=== PATIENT | male | born 1940 | race Caucasian/White ===

== ENCOUNTER 2016-06-06 23:26 | Observation (INO) ==
--- NOTE | 2016-06-06 23:38 | Emergency Department Note ---
Disposition Clinical Impression: Congestive heart failure, Community acquired pneumonia Disposition: Admitted As Inpatient Condition: Fair Forms: ED Satisfaction Letter Time of Disposition: 01:36 SOB HPI - General Chief Complaint: ED Shortness of Breath/Dyspnea Stated Complaint: HI Time Seen by Provider: 06/06/16 23:34 Source: patient Mode of arrival: ambulatory Limitations: no limitations Nursing Notes Reviewed: Yes Vital Signs Reviewed: Yes - History of Present Illness Pt Subjective Complaint: shortness of breath Context: recent illness, occurred during exertion Severity: moderate Consistency/Duration: gradually worsening Improves with: oxygen Worsens with: exertion, movement, inspiration Known history of: COPD, congestive heart failure, recurrent pneumonia Associated symptoms: Reports: fever, cough, wheezing, sputum production. Denies : chest pain, pain with inspiration, orthopnea, lower extremity pain, polyuria, polydipsia, parasthesias, palpitations, hemoptysis, diaphoresis, nausea/vomiting , syncope, abdominal pain, sense of impending doom Treatment prior to arrival: oxygen Cough present: Yes Cough Description: Involuntary, Productive, Strong, Bronchospastic Cough Frequency: Continuous Sputum production: Yes Sputum Amount: Small Sputum Color: Yellow, [place] Tinged - Related Data Home Medications Medication Instructions Recorded Confirmed Albuterol Sulfate [Proair 90 mcg IH Q2H PRN 03/08/15 03/08/15 Respiclick] Aspirin Enteric Coated [Aspirin EC] 81 mg PO DAILY 03/08/15 03/08/15 Atorvastatin [Lipitor] 10 mg PO DAILY 03/08/15 03/08/15 ClonazePAM [Klonopin] 0.5 mg PO HS 03/08/15 03/08/15 Esomeprazole Magnesium [Nexium] 40 mg PO DAILY 03/08/15 03/08/15 Nitroglycerin [Nitrostat] 0.4 mg SL Q5-6MIN PRN 03/08/15 03/08/15 PredniSONE 2 mg PO DAILY 03/08/15 03/08/15 Spironolactone [Aldactone] 25 mg PO BID 03/08/15 03/08/15 Tamsulosin [Flomax] 0.4 mg PO DAILY 03/08/15 03/08/15 Previous Rx's Medication Instructions Recorded OxyCODONE/APAP 5/325 [Percocet 1 - 2 each PO Q4HR PRN #40 tablet 03/08/15 5/325 MG] Allergies Allergy/AdvReac Type Severity Reaction Status Date / Time Iodinated Contrast Media - Allergy Swelling Verified 03/08/15 08:21 Oral and of [Iodinated Contrast Media - Lip/Tongue/Throat IV Dye] All systems ED: reviewed and negative except as stated. Constitutional: Denies: fever, chills, weakness Eyes: Denies: eye pain, eye discharge ENT ED: Denies: ear pain, throat pain Cardiovascular: Reports: dyspnea on exertion. Denies: chest pain, palpitations Respiratory: Reports: cough, dyspnea, wheezes, sputum production Gastrointestinal: Denies: abdominal pain, nausea, vomiting Genitourinary: Denies: urgency, dysuria, frequency Musculoskeletal: Denies: back pain, neck pain Integumentary: Denies: abrasion, lesions Neurological: Denies: headache, weakness Psychiatric: Denies: anxiety, depression Endocrine: Denies: fatigue Hematological/Lymphatic: Denies: easy bleeding Allergic/Immunologic: Denies: facial swelling Past Medical History - Past Medical History Attestation: Yes The following information was validated with the patient. Source: patient, old records reviewed, nursing notes reviewed Medical history: Reports: COPD, coronary artery disease, hyperlipidemia, hypertension, other Surgical history: Reports: coronary bypass (CABG) Psychiatric history: Reports: anxiety, depression - Social History Smoking Status: Former smoker Smokeless Tobacco Status: Yes Alcohol use: Reports: none Drug use: Reports: none Physical Exam - General Limitations: no limitations General appearance: alert, in no apparent distress, other ([place]WELL) - Head Head exam: atraumatic, normocephalic, normal inspection - Eye Eye exam: Present: normal appearance, PERRL, EOMI - ENT ENT exam: normal exam, normal oropharynx, mucous membranes moist, normal external ear exam - Neck Neck exam: Present: normal inspection, full ROM, trachea midline - Chest Chest inspection: Present: normal inspection, symmetric chest wall rise - Respiratory Respiratory exam: Present: normal lung sounds bilaterally - Cardiovascular Cardiovascular exam: Present: regular rate, normal rhythm, normal heart sounds - Abdominal Exam Abdominal exam: Present: soft, Non-Tender, normal bowel sounds. Absent: mass, pulsatile mass - Extremities Exam Extremities exam: Present: normal inspection, full ROM, normal capillary refill , pedal edema. Absent: tenderness, joint swelling - Expanded Lower Extremity Exam Neurovascular/Tendon exam: Present: normal capillary refill Gait: observed and normal - Back Exam Back exam: Present: normal inspection, full ROM. Absent: muscle spasm - Neurological Exam Neurological exam: Present: alert, oriented X3, CN II-XII intact, normal gait - Psychiatric Psychiatric exam: Present: normal affect, normal mood - Skin Skin exam: Present: warm, dry, intact, normal color Course Course Narrative: Payment given a gram of Tylenol because he had an elevated 103 patient was given Bumex due to vascular congestion on the chest xray with results and obtain discharged to [facility] stable Vital Signs Temperature 103.8 F H 06/06/16 23:38 Pulse Rate 111 06/06/16 23:38 Respiratory Rate 20 06/06/16 23:38 Blood Pressure 129/62 06/06/16 23:38 O2 Sat by Pulse Oximetry 93 L 06/06/16 23:38 Temperature 100.6 F H 06/07/16 01:04 Pulse Rate 105 06/07/16 01:04 Respiratory Rate 19 06/07/16 01:04 Blood Pressure 100/55 06/07/16 01:04 O2 Sat by Pulse Oximetry 94 L 06/07/16 01:04 Oxygen Delivery Oxygen Delivery Nasal Cannula Shortness of Breath/Dyspnea - Differential Diagnosis Likely: acute exacerbation of chronic obstructive airways disease, congestive heart failure, pneumonia - Medical Records Medical records reviewed: Yes I reviewed the patient's medical records. - Lab Data Lab results reviewed: Yes I reviewed the patient's lab results. Result diagrams: 06/07/16 00:13 06/07/16 00:13 Lab Results 06/07/16 06/07/16 06/07/16 Range/Units 00:13 00:13 00:13 WBC 14.6 H (4.3-11.1) K/mcL RBC 4.65 (4.19-5.50) M/mcL Hgb 13.7 (12.9-16.9) g/dL Hct 40.9 (37.5-50.1) % MCV 88.0 (83.0-100.0) fL MCH 29.5 (28.0-33.3) pg MCHC 33.5 (31.6-35.5) g/dL RDW 12.6 (11.5-14.5) % Plt Count 196 (140-400) K/mcL MPV 9.3 L (9.4-12.4) fL Immature Gran % 0.3 (0-4) % Seg Neutrophils % 90.9 % Lymphocytes % 3.7 % Monocytes % 4.7 % Eosinophils % 0.3 % Basophils % 0.1 % Neutrophils # 13.3 H (1.6-8.9) K/mcL Lymphocytes # 0.5 L (0.6-4.6) K/mcL Monocytes # 0.7 (0.0-1.3) K/mcL Eosinophils # 0.0 (0.0-0.6) K/mcL Basophils # 0.0 (0.0-0.2) K/mcL PT 11.6 (9.4-12.1) Seconds INR 1.1 APTT 19.8 L (26.0-36.0) Seconds Sodium 140 (136-145) mEq/L Potassium 3.8 (3.5-4.5) mEq/L Chloride 106 (98-109) mEq/L Carbon Dioxide 20 (19-29) mEq/L BUN 22 (8-26) mg/dL Creatinine 1.25 (0.72-1.25) mg/dL Est GFR ( Amer) > 60 (> 60) Est GFR (Non-Af Amer) 56 L (> 60) BUN/Creatinine Ratio 18 (6-26) Glucose 128 H (70-99) mg/dL Calculated Osmolality 295 (280-300) Calcium 8.5 L (8.6-10.8) mg/dL Troponin I (0-0.03) ng/mL B-Natriuretic Peptide (0-100) pg/mL 06/07/16 06/07/16 Range/Units 00:13 00:13 WBC (4.3-11.1) K/mcL RBC (4.19-5.50) M/mcL Hgb (12.9-16.9) g/dL Hct (37.5-50.1) % MCV (83.0-100.0) fL MCH (28.0-33.3) pg MCHC (31.6-35.5) g/dL RDW (11.5-14.5) % Plt Count (140-400) K/mcL MPV (9.4-12.4) fL Immature Gran % (0-4) % Seg Neutrophils % % Lymphocytes % % Monocytes % % Eosinophils % % Basophils % % Neutrophils # (1.6-8.9) K/mcL Lymphocytes # (0.6-4.6) K/mcL Monocytes # (0.0-1.3) K/mcL Eosinophils # (0.0-0.6) K/mcL Basophils # (0.0-0.2) K/mcL PT (9.4-12.1) Seconds INR APTT (26.0-36.0) Seconds Sodium (136-145) mEq/L Potassium (3.5-4.5) mEq/L Chloride (98-109) mEq/L Carbon Dioxide (19-29) mEq/L BUN (8-26) mg/dL Creatinine (0.72-1.25) mg/dL Est GFR ( Amer) (> 60) Est GFR (Non-Af Amer) (> 60) BUN/Creatinine Ratio (6-26) Glucose (70-99) mg/dL Calculated Osmolality (280-300) Calcium (8.6-10.8) mg/dL Troponin I 0.02 (0-0.03) ng/mL B-Natriuretic Peptide 62 (0-100) pg/mL - Radiology Data Radiology results reviewed: Yes I reviewed the patient's radiology results. ITS Impressions Chest X-Ray 06/06/16 23:38 IMPRESSION: Findings are suggestive of mild CHF, including mild pulmonary edema, small bilateral pleural effusions, and bibasilar airspace opacities, likely reflecting either asymmetric edema and/or atelectasis. D/ / Gallo Martínez MD / Gallo Martínez MD Interpreting Provider: Gallo Martínez MD - EKG Data EKG attestation: Yes I reviewed and interpreted this EKG. EKG results narrative: Pulmonary pattern rate 113 ID 132 QRS 103 QT 356 axis -34 Critical Care Time Critical Care Time: No
[2016-06-06] MEDS ORDERED: CefTRIAXone 1,000 MG in D5% in Water (Mini-Bag+) 100 ML IVPB STA (23:54)
[2016-06-06] MEDS ORDERED: Azithromycin 500 MG in D5% in Water 250 ML IVPB ONE (23:54)
[2016-06-07 00:29] LABS: Basophils % 0.1 %; Eosinophils % 0.3 %; Hematocrit 40.9 % (37.5-50.1); Hemoglobin 13.7 g/dL (12.9-16.9); Immature Granulocytes % 0.3 % (0-4); Lymphocytes # 0.5 K/mcL (0.6-4.6); Lymphocytes % 3.7 %; Mean Corpuscular HGB Conc 33.5 g/dL (31.6-35.5); Mean Corpuscular Hemoglobin 29.5 pg (28.0-33.3); Mean Platelet Volume 9.3 fL (9.4-12.4); Monocytes # 0.7 K/mcL (0.0-1.3); Monocytes % 4.7 %; Platelet Count 196 K/mcL (140-400); Red Blood Count 4.65 M/mcL (4.19-5.50); Red Cell Distribution Width 12.6 % (11.5-14.5); Segmented Neutrophils % 90.9 %
[2016-06-07 00:36] LABS: INR 1.1; Prothrombin Time 11.6 Seconds (9.4-12.1)
[2016-06-07] MEDS ORDERED: Bumetanide 1 MG/4 ML VIAL IVP ONE (00:36)
[2016-06-07 00:42] LABS: Activated Partial Thrombo Time 19.8 Seconds (26.0-36.0); Neutrophils # 13.3 K/mcL (1.6-8.9)
[2016-06-07 00:49] LABS: BUN/Creatinine Ratio 18 (6-26); Blood Urea Nitrogen 22 mg/dL (8-26); Calcium 8.5 mg/dL (8.6-10.8); Carbon Dioxide 20 mEq/L (19-29); Chloride 106 mEq/L (98-109); Glucose 128 mg/dL (70-99); Osmolality,Calculated 295 (280-300); Potassium 3.8 mEq/L (3.5-4.5); Sodium 140 mEq/L (136-145); eGFR For African Americans > 60 (> 60); eGFR For Non-African Americans 56 (> 60)
[2016-06-07 01:58] LABS: Bilirubin,Urine Negative (Negative); Blood,Urine Negative (Negative); Clarity,Urine Clear (Clear); Color,Urine Yellow (Yellow); Glucose,Urine (UA) Normal (Normal); Ketones,Urine Negative (Negative); Leukocyte Esterase,Urine Negative (Negative); Nitrite,Urine Negative (Negative); Protein,Urine Negative (Neg-Trace); Urobilinogen,Urine Normal (Normal)
[2016-06-07] MEDS ORDERED: Naloxone 0.4 MG/ML INJ IVP PRN (03:28)
[2016-06-07] MEDS ORDERED: Nitroglycerin 0.4 MG TAB.SUBL SL PRN (03:28)
[2016-06-07] MEDS ORDERED: Albuterol 2.5 MG/3 ML NEBULIZER IH PRN (03:28)
[2016-06-07] MEDS ORDERED: Azithromycin 500 MG in D5% in Water 250 ML IVPB SCH (03:28)
[2016-06-07] MEDS ORDERED: *HR* OxyCODONE/APAP 5/325 TABLET PO PRN (03:28)
[2016-06-07] MEDS ORDERED: 0.9 % Sodium Chloride 1,000 ML IVC SCH (03:28)
[2016-06-07] MEDS: Ipratropium/Albuterol Neb 3 ML IH SCH ×2 (04:30→11:09)
[2016-06-07] MEDS ORDERED: Bumetanide 1 MG/4 ML VIAL IVP SCH (08:00)
[2016-06-07] MEDS ORDERED: Spironolactone 25 MG TABLET PO SCH (09:00)
[2016-06-07] MEDS ORDERED: Aspirin Enteric Coated 81 MG Tablet PO SCH (09:00)
[2016-06-07] MEDS ORDERED: CefTRIAXone 1,000 MG in D5% in Water (Mini-Bag+) 100 ML IVPB SCH (09:00)
[2016-06-07 11:00] VITALS: BP 102/65
--- NOTE | 2016-06-07 12:02 | Electrocardiograph Report ---
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
--- NOTE | 2016-06-07 12:44 | Internal Med History&Physical ---
Date of Encounter: 06/07/16 Time of Encounter: 12:10 Assessment and Plan (1) Community acquired pneumonia Current visit: Yes Status: Acute He was given Rocephin and Zithromax through emergency room. He wishes to be discharged home. Internal Medicine - H&P: HPI Chief complaint: Chills Admitted From: Home Plans for Post Hospital Care: Home History of present illness: Mr. Lopez is a 75 year old male came to emergency complaining of onset of chills approximately 10 PM while at leisure. There was minimal worsening of his usual dyspnea and cough. He was evaluated in the emergency room and felt to have bilateral pneumonia. He was admitted to [facility] floor for ongoing care needs. He denies previous episodes of pneumonia. His respiratory history is significant for having smoked from age [age] up to 2 packs per day. He states he has been diagnosed with COPD and wears oxygen at bedtime and when necessary during the daytime. He also claims a diagnosis of asbestosis. 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 He is uncertain if he has had a CT of his chest in the past. Past Med Surg Social Fam HX - Past Medical History Medical history: COPD, coronary artery disease, hyperlipidemia, hypertension, myocardial infarction, other Psychiatric history: anxiety, depression - Past Surgical History Surgical History: coronary bypass (CABG) - Social History Smoking Status: Former smoker Smokeless Tobacco Status: Yes Alcohol use: none Drug use: none Internal Medicine - H&P: Meds Albuterol Sulfate [Proair Respiclick] 90 mcg IH Q2H PRN 03/08/15 [History] Aspirin Enteric Coated [Aspirin EC] 81 mg PO DAILY 03/08/15 [History] Atorvastatin [Lipitor] 10 mg PO DAILY 03/08/15 [History] ClonazePAM [Klonopin] 0.5 mg PO HS 03/08/15 [History] Esomeprazole Magnesium [Nexium] 40 mg PO DAILY 03/08/15 [History] Nitroglycerin [Nitrostat] 0.4 mg SL Q5-6MIN PRN 03/08/15 [History] OxyCODONE/APAP 5/325 [Percocet 5/325 MG] 1 - 2 each PO Q4HR PRN #40 tablet 03/08 [Rx] PredniSONE 2 mg PO DAILY 03/08/15 [History] Spironolactone [Aldactone] 25 mg PO BID 03/08/15 [History] Tamsulosin [Flomax] 0.4 mg PO DAILY 03/08/15 [History] Allergies Iodinated Contrast Media - Oral and [Iodinated Contrast Media - IV Dye] Allergy (Verified 03/08/15 08:21) Swelling of Lip/Tongue/Throat All Systems PM: A 10-system review of systems was performed and is negative for pertinent findings except as documented above in the HPI. Review of systems: Gen.: He states his weight has been stable the past few months Cardiovascular: He claims a history of hypertension. He has known ASHD status post 2 vessel CABG in 2002. He claims he had a heart catheter in 2013 without further intervention recommended. He believes he has been diagnosed with heart failure. He denies DVT or pulmonary embolus. 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 He takes Flomax for presumed BPH Neurologic: He denies large distribution strokes or seizures Endocrine: He has hyperlipidemia but denies diabetes or thyroid disease Hematology/oncology: Denies blood disorders cancers or anemia Psychiatric: He has anxiety but denies depression or other mental health issues Musk skeletal: He has arthritis that he believes is rheumatoid and uses prednisone. He denies other bone joint or muscle disorders. - Constitutional Vitals: Temp Pulse Resp BP Pulse Ox 99.2 F 89 20 102/65 94 06/07/16 10:59 06/07/16 10:59 06/07/16 10:59 06/07/16 10:59 06/07/16 10:59 Exam: Gen.: He is a well-developed well-nourished male appears in no acute distress. HEENT: Head is atraumatic and normocephalic. Eyes: EOMI. There is no scleral icterus. Mouth: Mucosa is moist. Neck: Supple and nontender. There is no thyromegaly or adenopathy noted. Heart: Regular without murmurs gallops or ectopics. Lungs: No wheezes or crackles were heard. He is not tachypneic Abdomen: Soft and nontender. No masses or guarding are noted. Extremities: There is no cyanosis edema or clubbing noted. Dorsalis pedis and posttibial pulses are 1-2 over 2 bilaterally. Neurologic: Mental status: He is talkative and a good historian. Cranial nerves : Smile is symmetric. Forehead wrinkles bilaterally. Tongue protrudes midline. EOMI. Motor: There is no pronator drift. Cerebellar: Finger to nose is intact bilaterally. Skin: Warm and dry Internal Med - H&P Results - Labs CBC & Chem 7: 06/07/16 00:13 06/07/16 00:13
--- NOTE | 2016-06-07 12:53 | Discharge Summary ---
Date of Encounter: 06/07/16 Time of Encounter: 12:10 - Discharge Diagnosis (1) Community acquired pneumonia Priority: Primary Status: Acute - Discharge Medications Prescriptions: Cefuroxime PO [Ceftin] 500 mg PO Q12HR #10 tablet Azithromycin [Zithromax] 250 mg PO DAILY #5 tablet Lactobacillus [Culturelle] 1 each PO BID #10 cap.sprink Home Medications: Albuterol Sulfate [Proair Respiclick] 90 mcg IH Q2H PRN 03/08/15 [History] Aspirin Enteric Coated [Aspirin EC] 81 mg PO DAILY 03/08/15 [History] Atorvastatin [Lipitor] 10 mg PO DAILY 03/08/15 [History] ClonazePAM [Klonopin] 0.5 mg PO HS 03/08/15 [History] Esomeprazole Magnesium [Nexium] 40 mg PO DAILY 03/08/15 [History] Nitroglycerin [Nitrostat] 0.4 mg SL Q5-6MIN PRN 03/08/15 [History] OxyCODONE/APAP 5/325 [Percocet 5/325 MG] 1 - 2 each PO Q4HR PRN #40 tablet 03/08 [Rx] PredniSONE 2 mg PO DAILY 03/08/15 [History] Spironolactone [Aldactone] 25 mg PO BID 03/08/15 [History] Tamsulosin [Flomax] 0.4 mg PO DAILY 03/08/15 [History] Azithromycin [Zithromax] 250 mg PO DAILY #5 tablet 06/07/16 [Rx] Cefuroxime PO [Ceftin] 500 mg PO Q12HR #10 tablet 06/07/16 [Rx] Lactobacillus [Culturelle] 1 each PO BID #10 cap.sprink 06/07/16 [Rx] Allergies/Adverse Reactions: Allergies Iodinated Contrast Media - Oral and [Iodinated Contrast Media - IV Dye] Allergy (Verified 03/08/15 08:21) Swelling of Lip/Tongue/Throat Date of admission: 06/07/16 02:57 Primary care physician: Barron Duncan MD - Patient Status Disposition: Home, Self-Care Condition: Fair Overall status at discharge: patient is progressing back to baseline - Discharge Instructions Follow Up With: Barron Duncan MD [Primary Care Provider] - 1 week - Diet and Activity Activity: resume usual activities as tolerated, wear oxygen at night Diet: advance to your usual diet Hospital course: Mr. Lopez is a 75 year old male who came to emergency complaining of onset of chills approximately 10 PM while at leisure. There was minimal worsening of his usual dyspnea and cough. He was evaluated in the emergency room and felt to have bilateral pneumonia. He was admitted to [facility] for ongoing care needs. Initial orders were written by the emergency room physician. I saw him on June 07 and performed a history and physical and discharge. When I saw him he stated this sensation of chills had resolved and he was adamant he be discharged home. I explained to him I recommended he remain for additional IV antibiotics but he wished to go home and do outpatient therapy. He will receive 5 day course of Ceftin and Zithromax with probiotics. He has home oxygen presently. He will follow with his PCP Dr. Duncan within 1 week. - Time Spent with Patient Total time spent providing and/or coordinating discharge services: - Constitutional Vitals: Temp Pulse Resp BP Pulse Ox 99.2 F 89 20 102/65 94 06/07/16 10:59 06/07/16 10:59 06/07/16 10:59 06/07/16 10:59 06/07/16 10:59
[2016-06-07] MEDS ORDERED: ClonazePAM 0.5 MG TABLET PO SCH (21:00)
== END 2016-06-07 14:25 | disposition home or self-care (01) ==
LOC: EMEROOPIK 23:26 → INPPIK 23:26
PROVIDERS: ADMIT Internal Medicine; ATTEND Internal Medicine